=== PATIENT | male | born 1950 | race Caucasian/White ===

== ENCOUNTER 2022-04-14 15:48 | Emergency (ER) | payer OTHER ==
[~2022-04-14] VITALS: Ht 188 cm; Wt 124.7 kg
[2022-04-14 16:38] LABS: BASOPHILS ABSOLUTE AUTO 0.04 K/mm3 (0.00-0.23); BASOPHILS PERCENT AUTO 1 % (0-2); EOSINOPHILS ABSOLUTE AUTO 0.22 K/mm3 (0.00-0.68); EOSINOPHILS PERCENT AUTO 3 % (0-6); Hematocrit 40.8 % (37.0-53.0); IMMATURE GRAN ABSOLUTE AUTO 0.04 K/mm3 (0.00-0.10); IMMATURE GRAN PERCENT AUTO 1 % (0-1); LYMPHOCYTES ABSOLUTE AUTO 1.37 K/mm3 (0.84-5.20); LYMPHOCYTES PERCENT AUTO 16 % (21-46); MONOCYTES ABSOLUTE AUTO 0.71 K/mm3 (0.16-1.47); MONOCYTES PERCENT AUTO 8 % (4-13); Mean Corpuscular HGB 29.4 pg (26.0-34.0); Mean Corpuscular HGB Conc 34.3 g/dL (31.5-36.5); Mean Corpuscular Volume 86 fL (80-100); Mean Platelet Volume 9.7 fL (9.1-12.4); NEUTROPHILS ABSOLUTE AUTO 6.12 K/mm3 (1.96-9.15); NEUTROPHILS PERCENT AUTO 72 % (41-73); Platelet Count 221 K/mm3 (150-400); RDW Coefficient Variation 13.8 % (11.7-14.2); RDW Standard Deviation 43.1 fL (35.1-46.3); Red Blood Cell Count 4.76 M/mm3 (4.30-5.90)
[2022-04-14 16:53] LABS: Bilirubin, Total 0.7 mg/dL (0.1-1.0); Bun/Creatinine Ratio 18.6 (12.0-20.0); Calcium, Blood 9.4 mg/dL (8.5-10.1); Creatinine, Blood 0.75 mg/dL (0.60-1.20); Globulin, Blood 4.1 g/dL (2.2-4.0); Potassium, Blood 4.4 mmol/L (3.5-5.5); Total Protein, Blood 8.1 g/dL (6.4-8.2)
== END 2022-04-14 19:28 | disposition home or self-care (01) ==
LOC: ER 15:48
PROVIDERS: Emergency Medicine
DX: K42.9 Umbilical hernia without obstruction or gangrene (principal); Z88.6 Allergy status to analgesic agent
CPT/HCPCS: 80053; 85025

== ENCOUNTER 2022-08-08 14:44 | Emergency (ER) | payer OTHER ==
[~2022-08-08] VITALS: Ht 188 cm; Wt 129.3 kg
[2022-08-08] MEDS ORDERED: FINA5 PO (15:04)
[2022-08-08] MEDS ORDERED: GLIM2 PO (15:04)
[2022-08-08] MEDS ORDERED: ZOCOR20 MG PO (15:04)
[2022-08-08] MEDS ORDERED: GABA300 PO (15:05)
[2022-08-08] MEDS ORDERED: TAMS.4ER PO (15:05)
[2022-08-08] MEDS ORDERED: METF500C PO (15:06)
[2022-08-08] MEDS ORDERED: VITAMIN B-122000 MC1 PO (15:06)
[2022-08-08] MEDS ORDERED: GLIP5 PO (15:06)
[2022-08-08] MEDS ORDERED: CARV3.125 PO (15:07)
[2022-08-08 15:16] LABS: BASOPHILS ABSOLUTE AUTO 0.02 K/mm3 (0.00-0.23); BASOPHILS PERCENT AUTO 0 % (0-2); EOSINOPHILS ABSOLUTE AUTO 0.27 K/mm3 (0.00-0.68); EOSINOPHILS PERCENT AUTO 4 % (0-6); Hematocrit 38.8 % (37.0-53.0); Hemoglobin 12.7 g/dL (13.5-17.5); IMMATURE GRAN ABSOLUTE AUTO 0.04 K/mm3 (0.00-0.10); IMMATURE GRAN PERCENT AUTO 1 % (0-1); LYMPHOCYTES PERCENT AUTO 19 % (21-46); MONOCYTES ABSOLUTE AUTO 0.79 K/mm3 (0.16-1.47); MONOCYTES PERCENT AUTO 11 % (4-13); Mean Corpuscular HGB 27.2 pg (26.0-34.0); Mean Corpuscular HGB Conc 32.7 g/dL (31.5-36.5); Mean Corpuscular Volume 83 fL (80-100); Mean Platelet Volume 9.2 fL (9.1-12.4); NEUTROPHILS ABSOLUTE AUTO 4.98 K/mm3 (1.96-9.15); NEUTROPHILS PERCENT AUTO 66 % (41-73); Platelet Count 199 K/mm3 (150-400); RDW Coefficient Variation 14.5 % (11.7-14.2); RDW Standard Deviation 43.4 fL (35.1-46.3); Red Blood Cell Count 4.67 M/mm3 (4.30-5.90)
[2022-08-08 15:28] LABS: Albumin, Blood 3.4 g/dL (3.4-5.0); Albumin/Globulin Ratio 0.9 (0.8-1.8); Bilirubin, Total 0.4 mg/dL (0.1-1.0); Bun/Creatinine Ratio 16.8 (12.0-20.0); Creatinine, Blood 0.77 mg/dL (0.60-1.20); Globulin, Blood 3.8 g/dL (2.2-4.0); Potassium, Blood 4.5 mmol/L (3.5-5.5); Total Protein, Blood 7.2 g/dL (6.4-8.2)
== END 2022-08-08 18:09 | disposition home or self-care (01) ==
LOC: ER 14:44
PROVIDERS: Student in an Organized Health Care Education/Training Program
DX: I20.8 Other forms of angina pectoris (principal); J98.11 Atelectasis; Z88.6 Allergy status to analgesic agent
CPT/HCPCS: 71046; 80053; 84484; 85025; 93005; 93010

== ENCOUNTER 2022-08-24 08:55 | Inpatient (IN) | payer OTHER ==
[~2022-08-24] VITALS: Ht 188 cm; Wt 127.7 kg
[~2022-08-24 08:55] MED LIST: CARV3.125 PO; FINA5 PO; GABA300 PO; GLIM2 PO; GLIP5 PO; METF500C PO; TAMS.4ER PO; VITAMIN B-122000 MC1 PO; ZOCOR20 MG PO
[2022-08-24] MEDS ORDERED: Prinivil10 MG PO (09:19)
[2022-08-24] MEDS ORDERED: TRAM50 PO (09:20)
[2022-08-24 10:14] LABS: BASOPHILS ABSOLUTE AUTO 0.04 K/mm3 (0.00-0.23); BASOPHILS PERCENT AUTO 1 % (0-2); EOSINOPHILS PERCENT AUTO 2 % (0-6); Hematocrit 39.6 % (37.0-53.0); Hemoglobin 12.9 g/dL (13.5-17.5); IMMATURE GRAN ABSOLUTE AUTO 0.05 K/mm3 (0.00-0.10); IMMATURE GRAN PERCENT AUTO 1 % (0-1); LYMPHOCYTES ABSOLUTE AUTO 1.08 K/mm3 (0.84-5.20); LYMPHOCYTES PERCENT AUTO 13 % (21-46); MONOCYTES ABSOLUTE AUTO 0.61 K/mm3 (0.16-1.47); MONOCYTES PERCENT AUTO 7 % (4-13); Mean Corpuscular HGB 27.1 pg (26.0-34.0); Mean Corpuscular HGB Conc 32.6 g/dL (31.5-36.5); Mean Corpuscular Volume 83 fL (80-100); Mean Platelet Volume 8.8 fL (9.1-12.4); NEUTROPHILS ABSOLUTE AUTO 6.36 K/mm3 (1.96-9.15); NEUTROPHILS PERCENT AUTO 76 % (41-73); Platelet Count 260 K/mm3 (150-400); RDW Coefficient Variation 14.7 % (11.7-14.2); RDW Standard Deviation 44.9 fL (35.1-46.3); Red Blood Cell Count 4.76 M/mm3 (4.30-5.90); White Blood Cell Count 8.34 K/mm3 (4.00-11.30)
[2022-08-24 10:30] LABS: Albumin, Blood 3.2 g/dL (3.4-5.0); Albumin/Globulin Ratio 0.8 (0.8-1.8); Bilirubin, Total 0.4 mg/dL (0.1-1.0); Bun/Creatinine Ratio 28.5 (12.0-20.0); Calcium, Blood 8.7 mg/dL (8.5-10.1); Creatinine, Blood 0.74 mg/dL (0.60-1.20); Globulin, Blood 4.1 g/dL (2.2-4.0); Potassium, Blood 4.5 mmol/L (3.5-5.5); Total Protein, Blood 7.3 g/dL (6.4-8.2)
[2022-08-24 11:02] LABS: Influenza A, PCR NEGATIVE (NEGATIVE); Influenza B, PCR NEGATIVE (NEGATIVE); Resp Syncytial Virus, PCR NEGATIVE (NEGATIVE); SARS-Cov-2 (COVID-19) PCR, MMC NEGATIVE (NEGATIVE)
[2022-08-24 12:10] LABS: Anti-Xa UFH, PHA Monitoring <0.10 IU/mL; International Normalized Ratio 1.07; Prothrombin Time Results 11.2 Sec (9.7-11.5)
--- NOTE | 2022-08-24 15:10 | NUR ---
ADMIT: PATIENT ADMIT TO PCU 11 AT 1350. ABLE TO STAND AND TRANSFER. N/T TO BILATERAL FEET AND HANDS. SBA TO BATHROOM FOR ASSISTANCE WITH LINES/CORDS. ON TELE SHOWING SR WITH HR 70-90'S. DENIES CHEST PAIN/PRESSURE. BP STABLE. HEPARIN GTT INFUSING PER EMAR. EDEMA NOTED. PPP. LUNGS SOUNDING CLEAR WITH FINE CRACKLES IN BASES. WEARING 2L NASAL CANNULA SATING MID-HIGH 90'S. SOB WHEN UP TO BATHROOM. PATIENT CANNOT LAY FLAT DUE TO SOB. ECHO AND CT PE COMPLETED, SEE IMAGING RESULTS. DENIES ABDOMINAL PAIN/NAUSEA. PATIENT EDUCATED ON I/O DOCUMENTATION. USING URINAL AT BEDSIDE. [facility]. HISTORY OF LEFT ACHILLES TENDON INJURY LAST OCTOBER, WEARING LEFT FOOT BRACE. RIGHT FOOT WITH RECENT INJURY BY STEPPING ON NAIL. PATIENT STATES HE WAS SEEN AT [facility] FOR NAIL INJURY - PUNCTURE TO RIGHT PLANTAR, SEE CHART FOR PHOTOS. CLEANED AND REDRESSED. ORIENTED TO ROOM/UNIT. CALL LIGHT IN REACH. WILL CONTINUE TO MONITOR.
[2022-08-24] MEDS ORDERED: ALOGLIPTIN25 M1 PO (16:30)
[2022-08-24] MEDS ORDERED: Crestor20 MG PO (16:33)
--- NOTE | 2022-08-24 16:39 | NUR ---
MED REC UPDATED AND ACCURATE PER [facility]
--- NOTE | 2022-08-24 18:08 | NUR ---
"Spiritual Care | Pt. request Pt. is sitting up in a recliner and welcomes my visit. Pt. is pleasant, and the nursing staff are helping the Pt. settle into his room. Pt. is unsettled about his pets at home. Listen with empathy and a calming presence. Pt. displays evidence of trust and verbalizes his life story. Rapport is established. Pt. verbalizes that he is an [employer] . Prayed with Pt. and Pt. became tearful, and also prayed. Pt. verbalized gratitude for the spiritual care visit."
--- NOTE | 2022-08-24 18:34 | NUR ---
SHIFT SUMMARY: NO ACUTE CHANGES, SEE PREVIOUS NOTE. VITALS REMAIN STABLE. HEPARIN GTT INFUSING PER EMAR. NO CHEST PAIN. UP IN RECLINER EATING DINNER. TELE CONTINUES TO SHOW SR. IV LASIX GIVEN WITH GOOD OUTPUT, SEE CHARTED I/O. [facility] CALLED AND MED REC COMPLETE.
[2022-08-25 03:16] LABS: Hematocrit 37.6 % (37.0-53.0); Hemoglobin 12.7 g/dL (13.5-17.5); Mean Corpuscular HGB 27.7 pg (26.0-34.0); Mean Corpuscular HGB Conc 33.8 g/dL (31.5-36.5); Mean Corpuscular Volume 82 fL (80-100); Mean Platelet Volume 9.2 fL (9.1-12.4); Platelet Count 252 K/mm3 (150-400); RDW Coefficient Variation 14.9 % (11.7-14.2); RDW Standard Deviation 44.5 fL (35.1-46.3); Red Blood Cell Count 4.58 M/mm3 (4.30-5.90); White Blood Cell Count 6.49 K/mm3 (4.00-11.30)
[2022-08-25 03:32] LABS: Bun/Creatinine Ratio 23.5 (12.0-20.0); Creatinine, Blood 0.81 mg/dL (0.60-1.20); Magnesium, Blood 1.9 mg/dL (1.6-2.4); Potassium, Blood 4.1 mmol/L (3.5-5.5)
--- NOTE | 2022-08-25 05:45 | NUR ---
PT SLEPT IN RECLINER, NO ISSUES OVERNIGHT, HEPARIN GTT AT 19 UNITS, UO 2000 CC, AFEBRILE, VSS
--- NOTE | 2022-08-25 09:35 | NUR ---
AM NOTE: PATIENT ALERT AND ORIENTED X4. NEURO AT BASELINE. PATIENT HAS HISTORY OF N/T TO BILATERAL FEET/HANDS. SBA TO BATHROOM. RIGHT PLANTAR FOOT WOUND BY STEPPING ON NAIL. PHOTO IN CHART. SKIN C/D/I. ON ROOM AIR STATING MID 90'S. SOME DYSPNEA ON EXERTION. LUNGS SOUNDING CLEAR AND DIM IN BASES. IV LASIX GIVEN THIS AM. TELE SHOWING SINUS RHYTHM WITH HR 70-80'S. BP STABLE. DENIES CHEST PAIN/PRESSURE. MINIMAL EDEMA TO LOWER EXTREMITIES. HEPARIN INFUSING. CARDIAC CONSULT IN PLACE. PATIENT STATES BREATHING HAS IMPROVED. SLEPT IN RECLINER. DENIES ABDOMINAL PAIN/NAUSEA. NPO AT THIS TIME WAITING FOR CARDIOLOGY. DR. DIAL BY THIS AM, DISCUSSED PLAN AND THIS RN UPDATED HER ON COMPLETED MED REC. PATIENT USING CALL LIGHT TO MAKE NEEDS KNOWN. WILL CONTINUE TO MONITOR.
--- NOTE | 2022-08-25 10:12 | NUR ---
UPDATE: DR. RODRIGUEZ BY TO SEE PATIENT. PLAN FOR FOLLOW UP OUTPATIENT CARDIOLOGY. CALL PLACED TO UPDATE DR. DIAL. POSSIBLE DISCHARGE TODAY. PATIENT UPDATED.
[2022-08-25] MEDS ORDERED: ASPI81CH PO (10:23)
[2022-08-25] MEDS ORDERED: FURO20 PO (10:24)
--- NOTE | 2022-08-25 12:33 | NUR ---
DISCHARGE: DISCHARGE WNL. VITAL SIGNS REMAIN STABLE. PATIENT DENIES CHEST PAIN/PRESSURE. SOB RESOLVED. DISCHARGE INSTRUCTIONS REVIEWED INCLUDING F/U APPOINTMENTS, NEW MEDICATIONS, SIGNS AND SYMPTOMS TO RETURN TO ED AND CARDIOLOGY FOLLOW UP. IV TAKEN OUT WNL. PATIENT TAKEN TO [facility] BY WHEELCHAIR WITH ALL PERSONAL BELONGINGS.
== END 2022-08-25 12:16 | disposition home or self-care (01) | DRG 280 ==
LOC: ER 08:55 → PCU 12:12
PROVIDERS: Nurse Practitioner Acute Care; Student in an Organized Health Care Education/Training Program; ADMIT Internal Medicine
DX: I11.0 Hypertensive heart disease with heart failure (principal); I50.31 Acute diastolic (congestive) heart failure; I21.A1 Myocardial infarction type 2; I25.10 Atherosclerotic heart disease of native coronary artery without angina pectoris; E11.9 Type 2 diabetes mellitus without complications; E78.5 Hyperlipidemia, unspecified; Z66 Do not resuscitate; N40.0 Benign prostatic hyperplasia without lower urinary tract symptoms; E66.01 Morbid (severe) obesity due to excess calories; R79.1 Abnormal coagulation profile; Z20.822 Contact with and (suspected) exposure to COVID-19; Z88.1 Allergy status to other antibiotic agents; Z88.8 Allergy status to other drugs, medicaments and biological substances; Z91.018 Allergy to other foods; Z79.899 Other long term (current) drug therapy; Z79.84 Long term (current) use of oral hypoglycemic drugs; Z95.5 Presence of coronary angioplasty implant and graft; Z98.890 Other specified postprocedural states; Z87.891 Personal history of nicotine dependence; Z68.36 Body mass index [BMI] 36.0-36.9, adult; Z79.811 Long term (current) use of aromatase inhibitors; Z79.891 Long term (current) use of opiate analgesic
CPT/HCPCS: 0241U; 36415; 71046; 71260; 80048; 80053; 82947; 83735; 83880; 84443; 84484; 85025; 85027; 85379; 85520; 85610; 93005; 93010; 96365-59; 96376-59; 99285-25; A9270; C8929; J1644; J1940; Q9957; Q9967

== ENCOUNTER 2023-05-15 05:45 | Day surgery (SDC) | payer OTHER ==
[~2023-05-15] VITALS: Ht 188 cm; Wt 122.0 kg
[2023-05-15] VITALS (9 sets, daily range): BP systolic 130–166; BP diastolic 56–85
[~2023-05-15 05:45] MED LIST changes: +ALOGLIPTIN25 M1 PO; +AMLO5 PO; +ASPI81CH PO; +Crestor20 MG PO; +DIPH25 PO; +FURO20 PO; +Prinivil10 MG PO; +SPIR25 PO; +TRAM50 PO
[2023-05-15] MEDS ORDERED: FINA5 PO (06:54)
[2023-05-15] MEDS ORDERED: Isosorbide Mono30 MG PO (06:55)
[2023-05-15] MEDS ORDERED: NITR.4SL SL (06:56)
--- NOTE | 2023-05-15 09:29 | NUR ---
PT RETURNED TO RECOVERY ROOM IN RECLINER. RIGHT RADIAL TR BAND SITE SOFT NON-TENDER WITH NO HEMATOMA, NO PULSATILE BLEEDING AND RIGHT WRIST BOARD IN PLACE. PT DENIES CHEST PAIN. CALL LIGHT IN REACH. PT DRINKING JUICE.
--- NOTE | 2023-05-15 11:11 | NUR ---
10 CC OF AIR REMOVED OUT OF NOW DEFLATED RIGHT TR BAND WITH NO HEMATOMA, NO PULSATILE BLEEDING AND WRIST BOARD IN PLACE. TR BAND WAS DEFLATEDOVER 12 MIN. DISCHARGE INSTRUCTIONS REVIEWED ALL QUESTIONS ANSWERED.
--- NOTE | 2023-05-15 11:19 | NUR ---
FULL REPORT PROVIDED NOAH SULLIVAN TO ASSUME CARE OF PT.
--- NOTE | 2023-05-15 11:49 | NUR ---
PT SITE REMAINS UNCHANGED FROM PREVIOUS ASSESSMENT, ALL AIR NOW OUT OF TR BAND, PT UP AD TITO. PLANS FOR DC AT 1230
--- NOTE | 2023-05-15 12:35 | NUR ---
PT RADIAL SITE REMAINS WNL, UNCHANGED FROM PREIVOUS ASSESSMENT. PT. VSS, ABLE TO GET SELF DRESSED WITH OUT DIFFICULTY. IV DCD, CATHETER INTACT. CLEAR OCCLUSIVE DRESSING PLACED TO RADIAL SITE. PT VERBALIZED EDUCATION AND WAS TAKEN VIA WHEELCHAIR TO EXIT, PT FRIEND TO DRIVE PT HOME. ALL BELONGINGS TAKEN WITH PT.
== END 2023-05-15 12:35 | disposition home or self-care (01) ==
LOC: MHTC 05:45
DX: I25.118 Atherosclerotic heart disease of native coronary artery with other forms of angina pectoris (principal); R06.02 Shortness of breath; R53.83 Other fatigue; I11.0 Hypertensive heart disease with heart failure; I50.30 Unspecified diastolic (congestive) heart failure; I25.2 Old myocardial infarction; E78.5 Hyperlipidemia, unspecified; E11.9 Type 2 diabetes mellitus without complications; Z79.84 Long term (current) use of oral hypoglycemic drugs
CPT/HCPCS: 76937; 85347; 93458; 93571; 99152; 99153; C1769; C1887; C1894; J1644; J2250; J3010; J7030; J7050; Q9967

== ENCOUNTER → 2024-10-22 | Outpatient (CLI) | payer OTHER ==
[~2024-10-22] MED LIST changes: +Isosorbide Mono30 MG PO; +NITR.4SL SL
[2024-10-28 12:12] LABS: CALCIUM, URINE - PER 24H 224 mg/d (100-250); CALCIUM, URINE - PER VOLUME 8.3 mg/dL; CHLORIDE, URINE - PER 24H 300 mmol/d (140-250); CHLORIDE, URINE - PER VOLUME 111 mmol/L; CITRIC ACID, URINE - PER 24H 742 mg/d (320-1240); CITRIC ACID,URINE - PER VOLUME 275 mg/L; CREATININE, URINE - PER 24H 1971 mg/d (800-2100); CREATININE, URINE - PER VOLUME 73 mg/dL; HOURS COLLECTED 24 hr; MAGNESIUM, URINE - PER VOLUME 5.1 mg/dL; MAGNESIUM, URINE PER 24H 138 mg/d (12-199); OXALATE, URINE - PER 24H 51 mg/d (16-49); OXALATE, URINE - PER VOLUME 19 mg/L; PH, URINE 5.38 (5.00-7.50); PHOSPHORUS, URINE - PER 24H 1485 mg/d (400-1300); PHOSPHORUS, URINE - PER VOLUME 55 mg/dL; POTASSIUM, URINE - PER 24H 89 mmol/d (25-125); POTASSIUM, URINE - PER VOLUME 33 mmol/L; SODIUM, URINE - PER 24H 300 mmol/d (51-286); SODIUM, URINE - PER VOLUME 111 mmol/L; SULFATE, URINE - PER 24H 14 mmol/d (6-30); SULFATE, URINE - PER VOLUME 5 mmol/L; TOTAL VOLUME 2700 mL; URIC ACID, URINE - PER 24H 913 mg/d (250-750); URIC ACID, URINE - PER VOLUME 33.8 mg/dL; URINE SUPERSATURATION INTERP Abnormal; URINE SUPERSATURATION, CAHPO4 0.42; URINE SUPERSATURATION, CAOX 4.73; URINE SUPERSATURATION, UA CALC 1.44
== END | disposition home or self-care (01) ==
LOC: LAB 10:00 → LAB SHORT 10:00
PROVIDERS: Urology
DX: N20.2 Calculus of kidney with calculus of ureter (principal)
CPT/HCPCS: 81003; 81050; 82131; 82140; 82340; 82436; 82507; 82570; 83735; 83935; 83945; 84105; 84133; 84300; 84392; 84560